=== PATIENT | female | born 1980 | race Two or more races ===

== ENCOUNTER → 2023-04-11 | Emergency (ER) | payer OTHER ==
[~2023-04-11] VITALS: Ht 167.6 cm; Wt 63.5 kg
[~2023-04-11] MED LIST: AMOX-CLAV 875-1 EACH PO; PEPCID AC20 MG PO
== END | disposition home or self-care (01) ==
LOC: ER 11:23
DX: J03.90 Acute tonsillitis, unspecified (principal)
CPT/HCPCS: 96365; 99284; J0696; J1885